=== PATIENT | female | born 1930 | race Caucasian/White ===

== ENCOUNTER 2016-07-03 10:51 | Emergency (ER) | payer MEDICARE, OTHER ==
[~2016-07-03] VITALS: Ht 165.1 cm; Wt 69.5 kg
[2016-07-03 10:53] VITALS: BP 137/71; PULSE 94; RESP 17; O2SAT 99
--- NOTE | 2016-07-03 12:28 | ED.REPORT ---
HPI-Back Pain 40 and Over Date of Service Jul 03, 2016 ED Provider: Dr. Houston Pt is an 86 year old female with a hx of UTIs presenting to the ED complaining of left lower back pain onset a few days ago, worsened yesterday. Associated symptoms include SOB, pain at the base of her skull, shaking/trembling. Denies fever, chills, nausea, vomiting, body aches, changes in urination. She denies any fall or mechanism of injury. Nursing Notes Stated Complaint: LOWER BACK PAIN Chief Complaint: Back Pain or Injury Nursing Notes Reviewed: Yes Allergies: Coded Allergies: Penicillins (Verified Allergy, Severe, Anaphylaxis, 07/03/16) Scheduled PRN Hydrocodone-Acetaminophen 5-325 mg (Hydrocodone-Acetaminophen 5-325 mg) 1 Each Tablet 0.5 TABLET PO Q4H PRN PRN For Pain General Time Seen by MD: 12:27 Chief Complaint Back pain Hx Obtained From: Patient, Other family... (Grandson) Arrived By: Walk-in Sudden in Onset?: No Onset Occurred: 4 days ago Symptom Duration: Since onset Quality: Painful Severity: Current: Severe Severity: Maximum: Severe Recent Healthcare: No recent doctor visit, No recent hospitalization Similar Sx Previous: No Past Medical History Past Medical History Hx UTIs Past Surgical History colonoscopy Ambulatory Status Independent Review of Systems Constitutional: Denies: Chills, Fever Respiratory: Reports: Shortness of breath GI: Denies: Nausea, Vomiting Female: Denies: Dysuria, Urinary frequency, Urinary urgency, Urination decreased, Urination increased Musculoskeletal: Reports: Back pain Neurologic: Reports: Shaking Complete sys rev & neg: except as marked. Physical Exam Initial Vital Signs Vital Signs (First) Date Time Temp Pulse Resp B/P Pulse Ox O2 Delivery O2 Flow Rate FiO2 07/03/16 10:53 36.9 94 17 137/71 99 Room Air Initial VS: Reviewed, Vital signs abnormal Head / Eyes: Atraumatic, Normocephalic, PERRL ENT: Mucous membranes moist, Conjunctiva normal, No scleral icterus Extremities: Vascular intact, Neuro intact, No swelling, No tenderness Skin: Warm, Dry, No cyanosis Psychiatric: Mood/affect normal, Behavior normal, Normal thought content General/Constitutional: Awake, Alert, No acute distress, Well appearing Respiratory / Chest: Breath sounds NL, Breath sounds = bilat, No respiratory distress, No rales, No rhonchi, No wheezing Cardiovascular: Heart rate NL, Regular rhythm, Heart sounds NL, No murmurs, Peripheral circulation NL Abdomen: Soft, Non-tender Back: No paraspinal tenderness Tenderness to right SI joint. Neurologic: Oriented X3, Speech NL, No motor deficits, No sensory deficits, Reflexes equal bilat Interpretation & Diagnostics Lab Results Interpretation Test 07/03/16 13:49 Urine Color Yellow (YELLOW) Urine Appearance Clear (CLEAR,HAZY) Urine pH 7.5 (5.0-8.0) Urine Specific [place] 1.010 (1.003-1.035) Urine Protein Negativemg/dL (NEG,TRACE) Urine Glucose (UA) 500mg/dL (NEGATIVE) Urine Ketones Tracemg/dL (NEGATIVE) Urine Occult Blood Negative (NEGATIVE) Urine Nitrite Negative (NEGATIVE) Urine Bilirubin Negative (NEGATIVE) Urine Urobilinogen Normalmg/dL (NORMAL) Urine Leukocyte Esterase Negative (NEGATIVE) Urine RBC 0-2/hpf (0-2) Urine WBC 0-5/hpf (0-5) Urine Epithelial Cells Few/hpf (NONE-MOD) Urine Crystals None seen (NONE SEEN) Urine Bacteria Few/hpf (NONE-FEW) Urine Hyaline Casts None/lpf (NONE) Urine Granular Casts None seen (NONE SEEN) Urine Waxy Casts None seen (NONE SEEN) Urine Red Blood Cell Casts None seen (NONE SEEN) Urine White Blood Cell Casts None seen (NONE SEEN) Urine Mucus None seen (None Seen) Urine Trichomonas None seen (NONE SEEN) Urine Yeast None (NONE SEEN) Urinalysis Comment None Urine Culture Reflexed Not indicated X-Ray Interpretation Xray Interpretation: PROCEDURE: X-RAY SACROILIAC JOINTS, THREE OR MORE VIEWS IMPRESSION: Bilateral sacroiliac degenerative changes. No evidence of ankylosis or erosive arthropathy. Lower lumbar and bilateral hip degeneration Dictated by: Tremaine Grove M.D. on 07/03/2016 at 14:50 Interpretation / Wet Read by: Interpret - Radiologist Re-Eval/Medical Decision Med Decision/Clinical Course The patient presents with right sacroiliac joint pain with no history of trauma. She does not have any midline spinal tenderness. Differential diagnoses considered were lytic lesion, aortic dissection, urinary tract infection, and arthritis. X-ray shows arthritis and the patient was treated symptomatically with improvement. Re-Evaluation/Progress : Time of Eval: 15:58 Patient Status: Condition improved Re-Evaluation/Progress Note: Discussed plan for discharge. Pt understands and agrees. Counseled Regarding: Diagnosis, Lab results, Need for follow-up, When/why to return to ED Discharge & Departure Impression: Primary Impression: Arthritis of sacroiliac joint Disposition: Home Discharge Condition All VS Reviewed: Yes Condition: Improved Patient Instructions: Acute Low Back Pain (ED) Additional Instructions: Activity as tolerated with pain. Use pain medication sparingly. Drink extra water and take extra fiber. Make sure to eat food with your medication. Seek care for any new or worsening symptoms. Make a follow up appointment in the next week. Referrals: Joshua Millan PA-C (PCP) Rowena Attestation Portions of this note were transcribed by Kaitlynn Chandra. I, Dr. Houston personally performed the history, physical exam and medical decision-making; I reviewed and confirmed the accuracy of the information in the transcribed note. Signed by : Rowena Stover, 07/03/2016 and 1557. copies to: Joshua Millan PA-C, Jena M MD Jul 03, 2016 12:28 KAITLYNN CHANDRA Jul 03, 2016 13:50
--- NOTE | 2016-07-03 14:53 | DRSVH ---
PROCEDURE: X-RAY SACROILIAC JOINTS, THREE OR MORE VIEWS ([id number]) INDICATIONS: rt SI joint pain TECHNIQUE: 3 views of the sacroiliac joints were acquired. COMPARISON: None. FINDINGS: Bones: No bony erosions or ankylosis. No suspicious bony lesions. No fractures. Lumbar disc degen eration and mild bilateral hip joint degeneration. Degenerative sclerosis and spurring of the sacroil iac joints Soft tissues: Overlying bowel gas pattern is normal. No suspicious soft tissue densities. IMPRESSION: Bilateral sacroiliac degenerative changes. No evidence of ankylosis or erosive arthropath y. Lower lumbar and bilateral hip degeneration Dictated by: Tremaine Grove M.D. on 07/03/2016 at 14:50 Approved by: Tremaine Grove M.D. on 07/03/2016 at 14:51
[2016-07-03] MEDS ORDERED: HYDROcodone-APAP 5-325 mg Tablet PO ONE (15:05)
[2016-07-03 15:30] LABS: APPEARANCE,URINE CLEAR (CLEAR,HAZY); COLOR,URINE YELLOW (YELLOW); PH,URINE 7.5 (5.0-8.0)
[2016-07-03 15:31] LABS: OCCULT BLOOD,URINE NEGATIVE (NEGATIVE); UROBILINOGEN,URINE NORMAL (NORMAL)
[2016-07-03] MEDS ORDERED: HYDR-4003 PO (15:51)
[2016-07-03 16:01] VITALS: BP 137/69; PULSE 82; RESP 17; O2SAT 98
== END 2016-07-03 16:02 | disposition home or self-care (01) ==
LOC: SED 10:51
DX: M46.98 Unspecified inflammatory spondylopathy, sacral and sacrococcygeal region (principal); Z88.0 Allergy status to penicillin